=== PATIENT | female | born 1930 | race Caucasian/White ===

== ENCOUNTER → 2016-08-26 | Outpatient (CLI) | payer MEDICARE, BC ==
[~2016-08-26] MED LIST: ASPI81TA11 OR; ASPI81TA11 PO; CEPH-460 PO; CEPH500C3 PO; OS-CTAB PO; VITA500C9 CHEW
[2016-08-26 13:27] LABS: HEMATOCRIT 43.9 % (35.0-46.0); MEAN CELL VOLUME 92.6 FL (80.0-100.0); MEAN CORPUSCULAR HEMOGLOBIN 30.7 PG (27.0-34.0); MEAN CORPUSCULAR HGB CONC 33.2 % (32.0-36.0); PLATELET COUNT 269 TH/MM3 (150-450); RED BLOOD COUNT 4.74 MIL/MM3 (4.00-5.30); RED CELL DISTRIBUTION WIDTH 13.9 % (11.6-17.2); REVIEW FLAG FINAL; WHITE BLOOD COUNT 3.7 TH/MM3 (4.0-11.0)
--- NOTE | 2016-08-27 10:24 | EKG ---
Date Performed: 08/26/2016 Time Performed: 13:12:24 PTAGE: 85 years EKG: Sinus bradycardia. Possible left atrial abnormality Poor R wave progression - probable norm al variant Borderline ECG NO PREVIOUS TRACING DOCTOR: Brady Agrawal Interpretating Date/Time 08/27/2016 10:20:16
== END ==
LOC: PHPRE 11:10
PROVIDERS: ATTEND Ophthalmology
DX: Z01.810 Encounter for preprocedural cardiovascular examination (principal); Z01.812 Encounter for preprocedural laboratory examination; H26.9 Unspecified cataract; R06.02 Shortness of breath; R00.1 Bradycardia, unspecified
CPT/HCPCS: 36415; 85027; 93005

== ENCOUNTER → 2016-09-09 | Day surgery (SDC) | payer MEDICARE, BC ==
--- NOTE | 2016-08-28 14:06 | MH ---
cc: BG GEORGE M.D. [facility], DATE OF ADMISSION: 09/09/2016 ADMISSION DIAGNOSIS Cataract, left eye. HISTORY OF PRESENT ILLNESS This 85-year-old white female is coming through [facility] for the purpose of a lens extraction of the left eye with intraocular lens implant under local anesthesia. She has noticed decreasing visual acuity interfering with her daily activities and elected to have the above procedure. Her best corrected visual acuity in room light is 20/40 -2 in the right eye and 20/100 +1 in the left. PAST MEDICAL HISTORY The patient has a history of syncope. PAST SURGICAL HISTORY 1. Dental surgery. 2. D&C. MEDICATIONS Daily medications include: 1. Baby aspirin off and on. 2. Vitamin-C. 3. Os-Gabriel. ALLERGIES She is allergic to AMOXICILLIN. SOCIAL HISTORY She smoked for 15 years in the past but has quit. She drinks wine socially. FAMILY HISTORY Positive for a son with cataracts and has had LASIK in both eyes as well. REVIEW OF SYSTEMS HEAD: Patient denies severe headaches, dizziness or recent head injury. EARS: The patient states rarely she gets ringing in her ears. Denies hearing loss, ear pain, discharge. NOSE: Patient denies nasal discharge, obstruction or frequent colds. MOUTH AND THROAT: Patient denies soreness of the mouth or tongue, bleeding gums, trouble swallowing, changes in voice or sore throat. NECK: Patient denies neck pain or swelling, limitation of neck movement or neck injury. CARDIOPULMONARY SYSTEM: The patient gets rare shortness of breath. Denies orthopnea, chronic cough, sputum production, hemoptysis, chest pain, wheezing, palpitations or light-headedness. GI SYSTEM: Patient denies poor appetite, nausea, vomiting, abdominal pain, ulcers, hemorrhoids or change in bowel habits. SYSTEM: The patient denies urinary frequency, dysuria, change in urine color. NERVOUS SYSTEM: Patient denies convulsions, vertigo, stroke, numbness or weakness. PHYSICAL EXAMINATION VITAL SIGNS: Blood pressure 118/64, pulse 84, respirations 16. HEAD: Normocephalic, atraumatic. NOSE: Without rhinorrhea. THROAT: Clear. NECK: Supple. CHEST: Clear. HEART: Regular rhythm. ABDOMEN: Without tenderness. EXTREMITIES: Without edema. NEUROLOGIC: Within normal limits. MENTAL STATUS: Within normal limits. EYE EXAM: The patient's best-corrected visual acuity in room light is 20/40 -2 in the right eye and 20/100 +1 in the left. Visual garcia are full to confrontation testing. Extraocular muscle exam reveals full versions with orthophoria at distance and near. Pupils are 3.5 mm, equal, round, and reactive to light without afferent defect. Anterior segment examination reveals nuclear sclerotic and posterior cortical cataracts bilaterally. Intraocular pressures is 17 in the right eye and 18 in the left by applanation tonometry. Dilated fundus exam reveals sharp disks with cup-to-disk ratio 0.25 bilaterally. There is some drusen in the macula of each eye. A posterior vitreous detachment is present bilaterally. IMPRESSION 1. Bilateral cataracts. 2. Posterior vitreous detachment, both eyes. 3. Macular drusen, both eyes. PLAN Lens extraction of the left eye with intraocular lens implant under local anesthesia through [facility]. Iris retractors may be used in this patient who may not dilate well. The patient has been cleared medically. She has been counseled as to the risks, benefits and alternatives and elected to proceed. I feel that cataract surgery will improve the quality of life and activities of daily living in this patient. MD DEREK Johnson/BT /1:33 PM /1:56 PM
[~2016-09-09] VITALS: Ht 162.6 cm; Wt 56.4 kg
[~2016-09-09] MED LIST changes: +ACETYLCHOLINE CHL OPHT SOLN 1:100 2 ML VIAL ONE; -ASPI81TA11 OR; -ASPI81TA11 PO; -CEPH-460 PO; -CEPH500C3 PO; +CYCLOPENTOLATE HCL 1% OPHT SOLN 2 ML BTL ONE; +DICLOFENAC SOD 0.1% OPHT SOLN 2.5 ML BTL ONE; +EPINEPHrine HCL (1:1000) 1 MG/ML VIAL ONE; +GATIFLOXACIN 0.5% OPHT SOLN 2.5 ML BTL ONE; +HYALURONIDASE/LIDOCAINE/BUPIVACAINE 4.5 ML SYR ONE; +HYALURONIDASE/LIDOCAINE/BUPIVACAINE 6 ML SYR ONE; +PHENYLEPHRINE HCL 2.5% OPTH SOLN 2 ML BTL ONE; +PROPARACAINE HCL 0.5% OPHT SOLN 15 ML BTL ONE; +PROPOFOL 200 MG/20 ML AMP ONE; +SODIUM CHLORID 0.9% 500 ML INJ 500 ML ONE; +TROPICAMIDE 1% OPHT SOLN 15 ML BTL ONE; +VISCOAT OPHT IRRIG SOLN 0.75 ML SYRINGE LEFT EYE ONE
[2016-09-09 08:15] VITALS: PULSE 65
[2016-09-09 08:37] VITALS: BP 159/88; PULSE 75; RESP 18; TEMP 98.3; O2SAT 99
[2016-09-09] MEDS: PILOCARPINE HCL 2% OPHT SOLN 15 ML BTL ONE ×2 (09:39→10:21)
[2016-09-09] MEDS: TOBRAMYCIN/DEXAMETHASONE OPTH OINT 3.5 GM TUBE ONE ×2 (09:46→10:21)
[2016-09-09 10:30] VITALS: TEMP 97.8
[2016-09-09 11:00] VITALS: BP 151/71; PULSE 57; RESP 14; O2SAT 99
--- NOTE | 2016-09-11 14:03 | MP ---
cc: BG HANDY DATE OF SURGERY: 09/09/2016 PREOPERATIVE DIAGNOSIS Cataract, left eye. POSTOPERATIVE DIAGNOSIS Cataract, left eye. OPERATION Extracapsular cataract extraction with posterior chamber intraocular lens implant by phacoemulsification, left eye. SURGEON Bg Handy M.D. ANESTHESIA Local. COMPLICATIONS None. INDICATIONS See history and physical previously dictated. OPERATIVE PROCEDURE The patient had adequate retrobulbar and eyelid blocks administered in the holding area and was brought to the operating room. The left eye was prepped and draped in the usual sterile ophthalmic manner. A lid speculum was inserted in the left eye. A 4-0 silk bridle suture was placed through the conjunctiva near the superior rectus muscle and it was tagged to the drape. A fornix-based conjunctival flap was prepared spanning approximately 5 mm in width. Hemostasis was obtained with wet-field cautery. A 3.5 mm groove was made 1 mm from the limbus and dissected up to the limbus in the form of a scleral pocket incision. A stab incision was then made at the 2 o'clock position. Viscoelastic was injected into the anterior chamber. In order to maintain an adequately dilated pupil, it was elected to use iris retractors in this case. Stab incisions were made at the 1 o'clock, 3 o'clock, 5 o'clock, 8 o'clock and 10 o'clock positions. Iris retractors were then inserted through the stab incisions in the peripheral cornea and positioned to enlarge the size of the pupil. The anterior chamber was entered with a 2.75 mm keratome through the scleral pocket incision. A 360 degree continuous curvilinear capsulorrhexis was then performed. Hydrodissection was utilized to divide the nucleus into inner and outer components and to separate the cortex from the capsule. Phacoemulsification was then utilized to remove the nucleus. The outer nuclear layer was removed with irrigation and aspiration and short bursts of ultrasound as necessary. The cortex was removed with the irrigation-aspiration handpiece. The posterior capsule was polished with the capsule polisher. Viscoelastic was injected into the capsular bag. The intraocular lens was inspected and found to be in good condition. The lens utilized was an Kirill, model SA60AT, with a power of +18 diopters. The lens was inserted into the capsular bag. The five iris retractors were removed. The viscoelastic in the anterior chamber was then removed with the irrigation-aspiration hand piece. Viscoelastic was also removed from beneath the intraocular lens. The anterior chamber was filled with Miochol-E through the stab incision and pressurized. The wound was checked for leaks at this pressure and normalized pressure and there were none. The 4-0 bridle suture was removed. The conjunctival flap was brought down over the wound and secured with cautery. Pilocarpine 2% eye drops were instilled topically. The lid speculum was removed. TobraDex ophthalmic ointment was applied. The eye was double patched and shielded. The patient tolerated the procedure well and left the Operating Room in satisfactory condition. MD DEREK Johnson/DEE DEE /10:33 AM /1:59 PM
== END | disposition home or self-care (01) ==
LOC: PHSDC 06:51
PROVIDERS: ATTEND Ophthalmology
DX: H26.9 Unspecified cataract (principal); H43.813 Vitreous degeneration, bilateral; Z88.0 Allergy status to penicillin
CPT/HCPCS: 00142; 66984; J0171; J7040; V2632